=== PATIENT | male | born 1970 | race Caucasian/White ===

== ENCOUNTER 2016-08-11 06:23 | Emergency (ER) | payer SELFPAY ==
[~2016-08-11] VITALS: Ht 170.2 cm; Wt 65.0 kg
[~2016-08-11 06:23] MED LIST: ACET1TAB40 PO; ALBU2.5V3 NEB; ALBU8.5H3 INH; ARIP2TAB8 PO; CARI350T PO; FLUO20CA38 PO; HYDR-762 PO; MOME13HF2 IH; RISP2TAB3 PO
[2016-08-11 06:33] VITALS: Ht 170.2 cm; Wt 65.0 kg
[2016-08-11] MEDS ORDERED: HYDROCODONE/APAP (5/325) TAB PO ONE (07:00)
[2016-08-11] MEDS ORDERED: HYDR-906 PO (07:11)
--- NOTE | 2016-08-11 07:34 | ERD ---
ER Documentation Chief Complaint Date/Time DATE: 08/11/16 TIME: 07:32 Chief Complaint chronic back pain HPI This is a 46-year-old male that presents to the ER with chronic back pain. Patient states he has had this pain for years as he has slipped disks. Pain is located in his lower back and is nonradiating, he states that [place] and [place] help his pain. Patient denies any recent trauma. He denies any urinary bowel incontinence he denies any saddle like anesthesia. Patient does admit to left- sided leg numbness and tingling. Patient denies any fevers or chills. He admits to smoking cigarettes. ROS 12 point review of systems was done, all negative except per HPI. Medications Home Meds Active Scripts Hydrocodone/Acetaminophen ([place] 5-325 Tablet) 1 Each Tablet, 1 TAB PO Q6H Y for PAIN, #10 TAB Prov:JACKELYN VENTURA 08/11/16 Acetaminophen-Codeine* (Acetaminophen-Cod #3*) 300-30 Mg Tab, 1 TAB PO Q4H Y for PAIN, #10 TAB Prov:SUSY SALAS MD 05/27/15 Hydrocodone Bit-Acetaminophen* ([place]*) 10-325 Mg Tablet, 1 TAB PO Q6 Y for PAIN , #10 TAB Prov:JP GUERRA MD 12/28/14 Reported Medications Mometasone-Formoterol (Dulera) 100-5 Mcg - 13 Gm Hfa.aer.ad, IH BID, EA 12/28/14 Aripiprazole* (Abilify*) 2 Mg Tablet, PO DAILY, TAB 12/28/14 Fluoxetine Hcl* (Prozac*) 20 Mg Capsule, 60 MG PO DAILY, CAP 12/28/14 Albuterol Sulfate* (Albuterol Sulfate* Neb) 0.083%-3 Ml Neb, 2.5 MG NEB Q3H Y for WHEEZING AND SOB, EA 12/28/14 Albuterol Sulfate* (Proair HFA*) 8.5 Gm Hfa.aer.ad, 2 PUFF INH Q4H Y for WHEEZING AND SOB, INH 12/28/14 Risperidone* (Risperidone*) 2 Mg Tablet, 2 MG PO PM, TAB 12/28/14 Carisoprodol* (Soma*) 350 Mg Tablet, 350 MG PO Q8 Y 10/24/12 Allergies Allergies: Coded Allergies: Penicillins (Verified Allergy, Intermediate, rash, 12/28/14) Uncoded Allergies: PENICILLIN (Allergy, Intermediate, Rash, 10/23/12) PMhx/Soc History of Surgery: No Anesthesia Reaction: No Hx Neurological Disorder: No Hx Respiratory Disorders: Yes (ASTHMA,COPD) Hx Cardiac Disorders: No Hx Psychiatric Problems: No Hx Miscellaneous Medical Probl: No (bulging disc) Hx Alcohol Use: Yes Hx Substance Use: Yes Hx Tobacco Use: Yes Smoking Status: Current every day smoker Physical Exam Vitals Vital Signs Date Time Temp Pulse Resp B/P Pulse Ox O2 Delivery O2 Flow Rate FiO2 08/11/16 06:33 98.1 84 18 137/77 97 Physical Exam GENERAL: The patient is well developed and appropriate for usual state of health , in no apparent distress. NECK: C-spine is soft and supple. There is no cervical lymphadenopathy. CHEST: Clear to auscultation bilaterally. There are no rales, wheezes or rhonchi. HEART: Regular rate and rhythm. No murmurs, clicks, rubs or gallops. ABDOMEN: Soft, nontender and nondistended. Good bowel sounds. No rebound or guarding. No gross peritonitis. No gross organomegaly or masses. No Clarke sign or McBurney point tenderness. No pulsatile abdominal mass. BACK: No midline or flank tenderness. Tender to palpation from L3-L5. Tense paraspinal muscles. Negative leg raise test. No step- offs. EXTREMITIES: Equal pulses bilaterally. There is no peripheral clubbing, cyanosis or edema. No focal swelling or erythema. Full range of motion. Grossly neurovascularly intact. NEURO: Alert and oriented. Cranial nerves II through XII are intact. Motor strength in all 4 extremities with 5/5 strength. Sensation grossly intact. Normal speech and gait. SKIN: There is no apparent rash or petechia. The skin is warm and dry. Results 24 hrs Current Medications Medications (Trade) Dose Ordered Sig/Lucas Route PRN Reason Start Time Stop Time Status Last Admin Dose Admin Acetaminophen/ Hydrocodone Bitart ([place] (5/325)) 1 tab ONCE ONCE PO 08/11/16 07:00 08/11/16 07:01 DC 08/11/16 06:57 Procedures/MDM Differential Diagnosis includes but is not limited to back strain, vertebral fracture, epidural abscess, cauda equina, herniated disc, AAA rupture, kidney stones, UTI, pyelonephritis. This is acute on chronic back pain. Patient has had this back pain for years. At this time suspicion for cauda equina, epidural abscess is low. Patient does not have any urine or bowel incontinence , he does not have any saddle like anesthesia. Patient has full range of motion of bilateral extremities and is neurovascularly intact. He is afebrile and well-appearing. She was given [place] in the ER he will be sent home with a short course of [place]. Needs follow-up with his primary care doctor within 1-2 days or return to ER sooner if symptoms worsen. My medical decision making was shared with the patient he understands and agrees with plan. Departure Diagnosis: Primary Impression: Back pain Condition: Stable Patient Instructions: Back Pain (Acute Or Chronic) Additional Instructions: Call your primary care doctor TOMORROW for an appointment during the next 1-2 days.See the doctor sooner or return here if your condition worsens before your appointment time. JACKELYN VENTURA Aug 11, 2016 07:34
== END 2016-08-11 07:35 | disposition home or self-care (01) ==
LOC: FTE 06:23
DX: M54.9 Dorsalgia, unspecified (principal); F17.210 Nicotine dependence, cigarettes, uncomplicated; J45.909 Unspecified asthma, uncomplicated; J44.9 Chronic obstructive pulmonary disease, unspecified
CPT/HCPCS: 99283

== ENCOUNTER 2017-10-20 21:19 | Emergency (ER) | END 2017-10-20 23:07 | disposition left against medical advice (07) ==

== ENCOUNTER 2018-03-02 19:30 | Emergency (ER) | END 2018-03-02 22:11 | disposition home or self-care (01) ==